=== PATIENT | female | born 2000 | race Caucasian/White ===

== ENCOUNTER 2025-08-05 17:04 | Inpatient (IN) ==
--- NOTE | 2025-08-05 17:51 | DR.EXTPAIN ---
HPI Time seen Time Seen by Provider: 08/05/25 17:31 PCP Primary Care Physician: Dr. Schroeder Complaint/Symptoms Chief Complaint Doctor Comments: Patient complaining of large abscess on the right breast that started on 1021. Patient is breast-feeding currently and supplementing with some formula. Patient states she was started on dicloxacillin that reports is getting worse. Patient states it is painful and hard. Denies fever. Chief Complaint:: Patient reports that she noticed redenss and a painful lump to her right breast on 07/29/25. She saw Dr. Schroeder and was put on Dicloxacillin 500mg Q6 hours. reports it has not gotten any better. Self Treatment fo Chief Complaint: took Ibuprofen around 1530 today COVID-19 Coronavirus risk:travel/contact w/high risk person: No Has patient experienced Coronavirus symptoms: No Source History Provided: Patient Mode of arrival Mode of Arrival: Ambulatory Timing Onset of Chief Complaint: 07/29/25 PMH PMH Past Medical History: No Past Surgical History: Yes Surgical History: Family History History of Family Medical Conditions: Yes Family Medical History: Diabetes Mellitus, Cancer and OR Social History Type of Tobacco Use: None Alcohol Use: None Do you use any recreational Drugs:: No Lives With: Significant Other Lives Where: Home Travel Risk Coronavirus risk:travel/contact w/high risk person: No Has patient experienced Coronavirus symptoms: No Infectious screening Have you traveled outside the country in the last 6 months?: No Isolation: Standard ROS Review of Systems Constitutional: No Symptoms Reported Eyes: No Symptoms Reported ENTM: No Symptoms Reported Respiratoy: No Symptoms Reported Cardiovascular: No Symptoms Reported Gastrointestinal/Abdominal: No Symptoms Reported Genitourinary: No Symptoms Reported Neurological: No Symptoms Reported Musculoskeletal: No Symptoms Reported Integumentary: See HPI Hematologic/Lymphatic: No Symptoms Reported Endocrine: No Symptoms Reported Psychiatric: No Symptoms Reported All Other Systems: Reviewed and Negative PE Vital Signs Vitals: Vital Signs Temperature 98.0 F Pulse Rate 88 Respiratory Rate 16 Blood Pressure 119/77 O2 Sat by Pulse Oximetry 98 General Limitations: No Limitations General Appearance: Alert and In No Apparent Distress Head Head Exam: Normal Inspection Eyes Eye exam: Normal Appearance ENT ENT Exam: Normal Exam Neck Neck Exam: Normal Inspection Chest Chest Inspection: Normal Inspection Respiratory Respiratory Exam: Normal Lung Sounds Bilat Cardiovascular Cardiovascular Exam: Regular Rate and Normal Rhythm Abdominal Exam Abdominal Exam: Normal Inspection, Normal Bowel Sounds and Soft Extremities Extremities Exam: Normal Inspection Back Back Exam: Normal Inspection Neurological Neurological Exam: Alert, Oriented X3 and CN II-XII Intact Psychiatric Psychiatric Exam: Normal Affect and Normal Mood Skin Skin Exam: Warm, Dry, Intact and Normal Color Type of Lesion: Abscess (Large abscess about 2 inch diameter on right breast with surrounding cellulitis.) COURSE Treatment Treatment: Discussed options with patient and patient opted to stay for admission and antibiotics to be seen by surgeon in the morning and possible drainage with sedation since she is very afraid of doing it with local anesthesia. Consultation Called: 17:50 Consultation Comments: Discussed case with surgeon, Dr. Allen. He is agreeable to admission. Presurgical workup ordered in order to prepare her for tomorrow. Opioid Opioid Risk Tool Age (Lucho box if 16-45): Yes History of Preadolescent Sexual Abuse: No Total: 1 Total Score Risk Category: Low Risk Copyright: Shekhar OLIVERA predicting aberrant behaviors Discharge Plan Diagnosis Discharge Problem: Abscess of breast Discharge Plan Patient Disposition: 09 ADMITTED INPATIENT Condition: Stable Prescriptions: No Action [facility] Concerns: Post Hospitalization: new medications and changes needed to prevent readmission or further decline. Pt educated and given instructions on all concerns. Plan of Treatment: Continue with present treatment and follow up plan. Pt is to keep follow up appointment as instructed and take medications as ordered. Orders to Discharge Patient Discharge Orders: Transfer (Routine); Ordered 08/05/25 Ordered By: Bang Price Follow ups/Referrals Follow ups/Referrals: [facility],None [Primary Care Provider] - 3 days Instructions Stand Alone Forms: Find Help Web Site, Post Hospital Follow Up Care Print Language: LITHUANIAN
[2025-08-05] MEDS ORDERED: KETAMINE HCL ONE (17:54)
[2025-08-05] MEDS ORDERED: ROCEPHIN VIAL 1 GRAM IM SCH (18:00)
[2025-08-05] MEDS: ROCEPHIN VIAL 1 GRAM IVP ONE (18:06)
[2025-08-05 18:19] LABS: MEAN PLATELET VOLUME 6.4 fL (7.4-11.0); RED CELL DISTRIBUTION WIDTH 14.9 % (11.6-16.5)
[2025-08-05 18:22] LABS: INR 1.05 (0.8-1.3)
[2025-08-05 18:41] LABS: COR CA(FOR HYPOALB) 9.0 mg/dL (8.5-10.1); CREATININE 0.71 mg/dL (0.55-1.02); eGFR NON BLACK RACES > 60 (>60)
[2025-08-05 18:44] LABS: BLOOD/HEMOGLOBIN,URINE NEGATIVE (NEGATIVE); LEUKOCYTE ESTERASE ,URINE 2+ (NEGATIVE); NITRITES,URINE NEGATIVE (NEGATIVE)
[2025-08-05 19:07] LABS: APPEARANCE,URINE SLIGHTLY HAZY (CLEAR)
[2025-08-05 19:08] LABS: SQUAMOUS EPITHELIAL CELL,UR FEW /HPF (NEGATIVE)
[2025-08-05] MEDS ORDERED: CONSULT PHARMACY - POTASSIUM & MAGNESIUM XX SCH (20:48)
[2025-08-05] MEDS ORDERED: ULTRAM PO PRN (20:48)
[2025-08-05] MEDS ORDERED: TYLENOL 325 MG TAB PO PRN (20:48)
--- NOTE | 2025-08-05 21:11 | RAD ---
EXAM: CHEST, 1 VIEW HISTORY: abscess; Patient reports that she noticed redenss and a painful lump to her right breast on 07/29/25. She saw Dr. Schroeder and was put on Dicloxacillin 500mg Q6 hours. reports it has not gotten any better. COMPARISON: None FINDINGS: The lungs are clear. No pneumothorax or effusion. Mild cardiomegaly The bones are unremarkable. IMPRESSION: 1. No acute cardiopulmonary abnormality THIS IS AN ELECTRONICALLY VERIFIED FINAL REPORT 08/05/2025 9:08 PM - Electronically signed by Mary Beebe MD
[2025-08-05] MEDS: NORCO 5/325 MG TAB PO PRN (21:49)
[2025-08-05 21:55] LABS: SERUM PREGNANCY TEST, QUAL NEGATIVE <10 mIU/mL
[2025-08-06] MEDS: MORPHINE SULFATE INJ 2 MG INJ IVP PRN (03:40)
[2025-08-06] MEDS: HIBICLENS WASH EXT ONE (04:06)
[2025-08-06 05:23] LABS: MEAN PLATELET VOLUME 6.7 fL (7.4-11.0); RED CELL DISTRIBUTION WIDTH 14.9 % (11.6-16.5)
[2025-08-06 05:37] LABS: COR CA(FOR HYPOALB) 9.3 mg/dL (8.5-10.1); CREATININE 0.88 mg/dL (0.55-1.02); eGFR NON BLACK RACES > 60 (>60)
[2025-08-06] MEDS ORDERED: CONSULT PHARMACY - POTASSIUM & MAGNESIUM XX SCH (07:00)
[2025-08-06] MEDS: DIPRIVAN VIAL 20 ML ONE (08:25)
[2025-08-06] MEDS: FENTANYL VIAL INJ 100 mcg ONE (08:25)
[2025-08-06] MEDS: XYLOCAINE 2 % (PLAIN) ONE (08:26)
[2025-08-06] MEDS: REGLAN INJ 10 MG VIAL ONE (08:26)
[2025-08-06] MEDS: ZOFRAN INJ 4 MG VIAL ONE (08:26)
[2025-08-06] MEDS: DECADRON INJ ONE (08:26)
[2025-08-06] MEDS: TORADOL 30 MG VIAL ONE (08:26)
[2025-08-06] MEDS: BETADINE SOLN ONE (08:45)
[2025-08-06] MEDS: ANCEF VIAL 1 GRAM ONE (08:45)
[2025-08-06] MEDS: NS 100 ML IV 100 ML ONE (08:45)
[2025-08-06] MEDS: PEPCID 20 MG VIAL ONE (08:48)
[2025-08-06] MEDS: LR IV PRN (08:50)
[2025-08-06] MEDS: LR 1,000 ML IV 1,000 ML IV ONE (08:52)
[2025-08-06] MEDS: VERSED ONE (08:54)
[2025-08-06] MEDS: OFIRMEV IV 1000 MG VIAL 1,000 MG/100 ML VIAL IV ONE (08:56)
[2025-08-06] MEDS ORDERED: NS 1/2 1,000 ML IV 1,000 ML IV SCH (09:00)
[2025-08-06] MEDS: VERSED IVP PRN (09:00)
[2025-08-06] MEDS: ZOFRAN INJ 4 MG VIAL IVP PRN (09:01)
[2025-08-06] MEDS: PEPCID 20 MG VIAL IVP PRN (09:02)
[2025-08-06] MEDS: ANCEF VIAL 1 GRAM IV PRN (09:03)
[2025-08-06] MEDS: REGLAN INJ 10 MG VIAL IVP PRN (09:05)
[2025-08-06] MEDS ORDERED: XYLOCAINE 2 % (PLAIN) PRN (09:07)
[2025-08-06] MEDS: DIPRIVAN VIAL 150 ML IVP PRN (09:08)
[2025-08-06] MEDS: KETAMINE HCL IVP PRN (09:08)
[2025-08-06] MEDS: TORADOL 30 MG VIAL IVP PRN (09:09)
[2025-08-06] MEDS: FENTANYL VIAL INJ 100 mcg IVP PRN (09:11)
[2025-08-06] MEDS: DECADRON INJ IVP PRN (09:12)
[2025-08-06] MEDS: POLYMYXIN B SULFATE ONE (09:15)
[2025-08-06] MEDS: MARCAINE 0.5% ONE (09:15)
[2025-08-06] MEDS: OFIRMEV IV 1000 MG VIAL 1,000 MG/100 ML VIAL IV PRN (09:16)
[2025-08-06] MEDS ORDERED: TORADOL TAB PO PRN (09:42)
[2025-08-06] MEDS: ANCEF VIAL 1 GRAM 1 G in NS 100 ML IV 100 ML IV SCH (10:07)
[2025-08-06] MEDS: MAG-OX TAB PO SCH (11:30)
[2025-08-06] MEDS: D5 1/2 NS 1,000 ML 1,000 ML IV SCH (11:45)
[2025-08-06] MEDS: K-DUR TAB 20 MEQ PO SCH (12:37)
[2025-08-06] MEDS: MAG-OX TAB ONE (14:55)
[2025-08-07 04:58] LABS: MEAN PLATELET VOLUME 6.9 fL (7.4-11.0); RED CELL DISTRIBUTION WIDTH 14.6 % (11.6-16.5)
[2025-08-07 05:11] LABS: COR CA(FOR HYPOALB) 9.3 mg/dL (8.5-10.1); CREATININE 0.79 mg/dL (0.55-1.02); eGFR NON BLACK RACES > 60 (>60)
[2025-08-07] MEDS ORDERED: CONSULT PHARMACY - POTASSIUM & MAGNESIUM XX SCH (06:00)
[2025-08-07 08:17] VITALS: BP 142/83; PULSE 50; TEMP 98.1; O2SAT 98
[2025-08-07] MEDS: K-DUR TAB 20 MEQ PO SCH (08:40)
[2025-08-07] MEDS: MAG-OX TAB PO SCH (08:41)
[2025-08-07 10:08] VITALS: RESP 20
[2025-08-07 10:34] VITALS: BMI 39.8
== END 2025-08-07 11:53 | disposition home or self-care (01) | DRG 776 ==
LOC: MED/SURG 17:04 → ER 17:04 → MED/SURG 20:10
PROVIDERS: ADMIT Surgery; ATTEND Surgery
DX: D64.89 Other specified anemias; E83.51 Hypocalcemia; O91.12 Abscess of breast associated with the puerperium; D72.828 Other elevated white blood cell count; Z16.23 Resistance to quinolones and fluoroquinolones; B95.62 Methicillin resistant Staphylococcus aureus infection as the cause of diseases classified elsewhere; Z16.29 Resistance to other single specified antibiotic